=== PATIENT | male | born 1985 | race Caucasian/White ===

== ENCOUNTER 2024-11-26 15:03 | Emergency (ER) | payer OTHER ==
[~2024-11-26] VITALS: Ht 175.3 cm; Wt 81.3 kg
[2024-11-26 17:01] VITALS: BP 124/80; TEMP 97.5; O2SAT 97
== END 2024-11-26 17:02 | disposition home or self-care (01) ==
LOC: M ED 15:03
DX: G44.84 Primary exertional headache (principal)

== ENCOUNTER → 2025-01-14 | Outpatient (CLI) | payer OTHER | LOC: M PLARAD 08:38 | PROVIDERS: ATTEND Student in an Organized Health Care Education/Training Program | DX: R59.0 Localized enlarged lymph nodes (principal) | CPT/HCPCS: 78815; A9552 ==